=== PATIENT | female | born 1960 | race Caucasian/White ===

== ENCOUNTER → 2019-12-06 | Outpatient (CLI) | payer BC ==
[~2019-12-06] MED LIST: ESTRACE1 M1 PO; LIPITOR10 MG PO; TAMIFLU75 MG PO; ZITHROMAX Z PA250 MG PO
== END | disposition home or self-care (01) ==
LOC: COVID19 01:20
PROVIDERS: ATTEND Nurse Practitioner Family
DX: R05 Cough (principal); R53.83 Other fatigue; R09.81 Nasal congestion; M25.50 Pain in unspecified joint; Z20.828 Contact with and (suspected) exposure to other viral communicable diseases

== ENCOUNTER → 2020-05-10 | Outpatient (CLI) | payer BC | END | disposition home or self-care (01) | LOC: COVID19 10:39 | PROVIDERS: ATTEND Nurse Practitioner Family | DX: U07.1 COVID-19 (principal) ==

== ENCOUNTER → 2020-05-27 | Outpatient (CLI) | payer BC | END | disposition home or self-care (01) | LOC: RAD 12:32 | PROVIDERS: ATTEND Nurse Practitioner Family | DX: U07.1 COVID-19 (principal); R05 Cough; R06.02 Shortness of breath ==

== ENCOUNTER → 2021-02-25 | Outpatient (CLI) | payer BC | END | disposition home or self-care (01) | LOC: RAD 12:24 | PROVIDERS: ATTEND Nurse Practitioner Family | DX: U07.1 COVID-19 (principal); J12.82 Pneumonia due to coronavirus disease 2019 ==

== ENCOUNTER → 2021-06-25 | Outpatient (CLI) | payer BC | END | disposition home or self-care (01) | LOC: RAD 15:05 | PROVIDERS: ATTEND Nurse Practitioner Family | DX: R06.2 Wheezing (principal); R05.9 Cough, unspecified ==

== ENCOUNTER → 2021-07-10 | Outpatient (CLI) | payer BC | END | disposition home or self-care (01) | LOC: CT 14:00 | PROVIDERS: ATTEND Nurse Practitioner Family | DX: G44.52 New daily persistent headache (NDPH) (principal) ==

== ENCOUNTER 2021-12-17 07:48 | Emergency (ER) | payer BC, OTHER ==
[~2021-12-17] VITALS: Ht 167.6 cm; Wt 99.8 kg
[2021-12-17] MEDS ORDERED: B-COMPLEX TABL0.4 MG PO (08:38)
[2021-12-17] MEDS ORDERED: VITAMIN D3 MA125 MC1 PO (08:38)
[2021-12-17] MEDS ORDERED: ONE DAILY WITH1 EACH PO (08:39)
[2021-12-17] MEDS ORDERED: VITAMIN C500 M6 PO (08:39)
[2021-12-17] MEDS ORDERED: BUPROPION HYDR150 M1 PO (08:39)
[2021-12-17] MEDS ORDERED: TYLENOL325 M1 PO (08:45)
[2021-12-17] MEDS ORDERED: NAPROXEN250 MG PO (08:45)
== END 2021-12-17 08:54 | disposition home or self-care (01) ==
LOC: ED 07:48
DX: S42.301A Unspecified fracture of shaft of humerus, right arm, initial encounter for closed fracture (principal); E78.00 Pure hypercholesterolemia, unspecified; Z79.899 Other long term (current) drug therapy; Z90.710 Acquired absence of both cervix and uterus; W19.XXXA Unspecified fall, initial encounter; Y93.89 Activity, other specified; Y92.512 Supermarket, store or market as the place of occurrence of the external cause; Y99.8 Other external cause status

== ENCOUNTER → 2022-03-27 | Outpatient (CLI) | payer OTHER ==
[~2022-03-27] MED LIST changes: +B-COMPLEX TABL0.4 MG PO; +BUPROPION HYDR150 M1 PO; +NAPROXEN250 MG PO; +ONE DAILY WITH1 EACH PO; +TYLENOL325 M1 PO; +VITAMIN C500 M6 PO; +VITAMIN D3 MA125 MC1 PO
== END | disposition home or self-care (01) ==
LOC: MRI 00:59
PROVIDERS: ATTEND Orthopaedic Surgery
DX: M75.121 Complete rotator cuff tear or rupture of right shoulder, not specified as traumatic (principal); S43.491A Other sprain of right shoulder joint, initial encounter; M19.011 Primary osteoarthritis, right shoulder; X58.XXXA Exposure to other specified factors, initial encounter; Y93.89 Activity, other specified; Y92.89 Other specified places as the place of occurrence of the external cause; Y99.8 Other external cause status

== ENCOUNTER → 2023-01-12 | Day surgery (SDC) | payer OTHER ==
[2023-01-08 14:29] LABS: BUN 11 mg/dl (9-23); CHLORIDE 105 mmol/L (98-107); POTASSIUM 4.4 mmol/L (3.4-5.1)
[~2023-01-12] VITALS: Ht 167.6 cm; Wt 104.3 kg
[~2023-01-12] MED LIST changes: +ASPIRIN81 M1 PO; +PERCOCET 5-3251 EACH PO
[2023-01-12 12:42] VITALS: BP 101/56
[2023-01-12 12:57] VITALS: BP 108/57
[2023-01-12 13:12] VITALS: BP 109/64
[2023-01-12 13:27] VITALS: BP 98/52
[2023-01-12 13:42] VITALS: BP 106/61
== END | disposition home or self-care (01) ==
LOC: SDC 01-08 13:15
PROVIDERS: ATTEND Orthopaedic Surgery
DX: M75.101 Unspecified rotator cuff tear or rupture of right shoulder, not specified as traumatic (principal); M75.41 Impingement syndrome of right shoulder; E78.00 Pure hypercholesterolemia, unspecified; J45.909 Unspecified asthma, uncomplicated; K21.9 Gastro-esophageal reflux disease without esophagitis; Z90.710 Acquired absence of both cervix and uterus; Z98.51 Tubal ligation status; Z98.890 Other specified postprocedural states

== ENCOUNTER → 2023-03-03 | Outpatient (CLI) | payer BC | END | disposition home or self-care (01) | LOC: ORTHO 01:20 | PROVIDERS: ATTEND Orthopaedic Surgery | DX: M19.011 Primary osteoarthritis, right shoulder (principal); M75.101 Unspecified rotator cuff tear or rupture of right shoulder, not specified as traumatic ==

== ENCOUNTER → 2023-08-31 | Outpatient (CLI) | payer BC | END | disposition home or self-care (01) | LOC: LAB 15:03 | PROVIDERS: ATTEND Nurse Practitioner Family | DX: J06.9 Acute upper respiratory infection, unspecified (principal); M25.50 Pain in unspecified joint; B08.3 Erythema infectiosum [fifth disease]; Z20.822 Contact with and (suspected) exposure to COVID-19 ==

== ENCOUNTER → 2023-10-13 | Outpatient (CLI) | payer BC | END | disposition home or self-care (01) | LOC: LAB 16:22 | PROVIDERS: ATTEND Nurse Practitioner Family | DX: Z01.419 Encounter for gynecological examination (general) (routine) without abnormal findings (principal); Z12.11 Encounter for screening for malignant neoplasm of colon ==

== ENCOUNTER → 2024-04-12 | Outpatient (CLI) | payer BC ==
[2024-04-12 09:37] LABS: BUN 11 mg/dl (9-23); POTASSIUM 4.5 mmol/L (3.4-5.1)
== END | disposition home or self-care (01) ==
LOC: LAB 08:38
PROVIDERS: ATTEND Surgery
DX: C50.412 Malignant neoplasm of upper-outer quadrant of left female breast (principal)

== ENCOUNTER → 2024-04-18 | Outpatient (CLI) | payer BC | END | disposition home or self-care (01) | LOC: CARD 14:55 | PROVIDERS: ATTEND Surgery | DX: C50.412 Malignant neoplasm of upper-outer quadrant of left female breast (principal) ==